=== PATIENT | female | born 1970 ===

== ENCOUNTER 2018-10-15 13:37 | Emergency (ER) | payer OTHER | END 2018-10-15 16:36 | disposition home or self-care (01) | LOC: C.ER 13:37 ==

== ENCOUNTER 2019-01-05 08:53 | Outpatient (CLI) | payer OTHER | END 2019-01-05 08:54 | disposition home or self-care (01) | LOC: C.USIC 08:54 | DX: R10.11 Right upper quadrant pain (principal) ==